=== PATIENT | female | born 1970 | race Caucasian/White ===

== ENCOUNTER 2016-09-06 14:01 | Emergency (ER) | payer OTHER, MEDICARE ==
[~2016-09-06 14:01] MED LIST: ALDACTONE PO; ASAB PO; BACTROCR TOP; BANOPHEN25 MG PO; BUM1 PO; C5 PO; COREG3 PO; COUMADIN4 MG PO; DSS PO; ESTRACE1 MG PO; ESTRATESHS PO; HUMALOG KW200 UNIT/1 SQ; HUMALOGPEN SC; K500 PO; KDUR20 PO; KLOR-CON M1010 MEQ PO; L20 PO; LANTUSCART SC; LIPITOR40 PO; LYRICA150 MG PO; MIRALAX POWDER1 PKT PO; MIRALAXPKT PO; MOMUD PO; MSCONT15 PO; MSCONTIN PO; NORFLEX PO; OXYCOD PO; OXYIR5 MG PO; PR25 PO; PRIN2.5 PO; PROAIR HFA INH; PROZAC40 MG PO; SPIRO25 PO; V5 PO; ZANAFLEX 4 MG TA4 MG PO
[2016-09-06 14:48] LABS: BASOPHILS 0.2 %; BASOPHILS ABSOLUTE 0.03 10/3/uL (0.0-0.16); EOSINOPHILS 1.5 %; EOSINOPHILS ABSOLUTE 0.18 10/3/uL (0.0-0.53); ER CBC TAT 0 Hrs 11 Mins; HEMATOCRIT 40.2 % (36.0-48.0); HEMOGLOBIN 13.5 g/dL (12.0-16.0); IMMATURE GRANULOCYTES 0.3 %; IMMATURE GRANULOCYTES ABSOLUTE 0.04 10/3/uL (0.0-0.11); LYMPHOCYTES 36.3 %; LYMPHOCYTES ABSOLUTE 4.47 10/3/uL (0.67-4.30); MEAN CORPUS HGB CONC 33.6 g/dL (32.0-36.0); MEAN CORPUSCULAR HEMOGLOB 27.3 pg (26.0-34.0); MEAN PLATELET VOLUME 9.5 fL (9.2-13.0); MONOCYTES 9.5 %; MONOCYTES ABSOLUTE 1.17 10/3/uL (0.21-1.20); NEUTROPHILS 52.2 %; NEUTROPHILS ABSOLUTE 6.42 10/3/uL (2.02-8.40); PLATELET COUNT 291 10/3/uL (150-400); RBC DISTRIBUTION WIDTH 15.1 % (12.0-16.0); RED CELL COUNT 4.94 10/6/uL (4.0-5.6); WHITE BLOOD CELLS 12.3 10/3/uL (4.5-10.5)
[2016-09-06 14:56] LABS: MANUAL DIFF NO %; MEAN CORPUSCULAR VOLUME 81.4 fL (80-100)
[2016-09-06 15:02] LABS: A/G RATIO 0.8 (0.7-1.9); ALBUMIN 3.2 G/DL (3.5-5.0); ALKALINE PHOSPHATASE 98 U/L (45-117); BUN (BLOOD UREA NITROGEN) 18 MG/DL (6-23); CALCIUM, SERUM 9.2 MG/DL (8.5-10.4); CHLORIDE, SERUM 95 MMOL/L (96-112); CO2 (CARBON DIOXIDE) 30 MMOL/L (24-34); CREATININE 1.11 MG/DL (0.55-1.02); GFR AFRICAN AMERICAN 68 ML/MIN (>=60); GFR NON AFRICAN AMERICAN 59 ML/MIN (>=60); GLOBULIN 4.2 G/DL (2.5-4.1); GLUCOSE, SERUM 113 MG/DL (60-99); POTASSIUM, SERUM 3.9 MMOL/L (3.5-5.3); SGOT(AST) 17 U/L (5-40); SGPT(ALT) 16 U/L (5-65); SODIUM, SERUM 131 MMOL/L (135-148); TOTAL BILIRUBIN 1.2 MG/DL (0-1.2); TOTAL PROTEIN 7.4 G/DL (6.0-8.5)
[2016-09-06 16:25] LABS: TROPONIN I <0.02 NG/ML (<0.05)
[2016-09-06 16:45] LABS: ASCORBIC ACID (UR NOT ORDER) NEG (NEG); BILIRUBIN, URINE NEGATIVE (NEG); KETONE, URINE NEGATIVE (NEG); LEUKOCYTE ESTERASE(NOT OR NEG (NEG); NITRITE (URINE) NEG (NEG); WBC (NOT ORDERED) (RFLEX) < 1 (0-5)
[2016-09-06 18:38] LABS: BE (BASE EXCESS) 5.1 MEQ/L (0 +/- 2.5); CARBOXYHEMOGLOBIN 7.8 % (0-3); HCO3 (ACTUAL BICARBONATE) 29.7 MEQ/L (23-27); HEMOBLOGIN CONTENT 13.9 G/DL (12-16); INSTRUMENT SERIAL # 8087; METHEMOGLOBIN 0.2 % (0-3); O2 CONTENT 14.4 VOL% (18-24); OPERATOR ID 14335; PCO2 (CO2 TENSION) 43 MMHG (35-45); PO2 (O2 TENSION) 42 MMHG (79-93); SAMPLE Arterial; pH 7.45 (7.37-7.43)
[2016-10-16] MEDS ORDERED: PRIN2.5 PO (13:20)
[2016-10-17] MEDS ORDERED: TOPXL25 PO (16:58)
[2016-11-27] MEDS ORDERED: PRIN2.5 PO (17:36)
[2016-11-27] MEDS ORDERED: LYRICA100 MG PO (17:37)
[2016-11-27] MEDS ORDERED: LIPITOR40 PO (17:37)
[2016-11-27] MEDS ORDERED: ROXICODONE15 MG PO (17:38)
[2016-11-27] MEDS ORDERED: SPIRO25 PO (17:38)
[2016-11-27] MEDS ORDERED: DSS PO (17:39)
[2016-11-27] MEDS ORDERED: MSCONT15 PO (17:39)
[2016-11-27] MEDS ORDERED: DANTRIUM25 MG PO (17:39)
[2016-11-27] MEDS ORDERED: BUM1 PO (17:39)
[2016-11-27] MEDS ORDERED: KLOR-CON M2020 MEQ PO (17:40)
[2016-11-27] MEDS ORDERED: COREG3 PO (17:40)
[2016-11-27] MEDS ORDERED: HALF81 PO (17:41)
[2016-11-27] MEDS ORDERED: PR25 PO (17:41)
[2016-11-27] MEDS ORDERED: ESTRACE1 MG PO (17:41)
[2016-11-27] MEDS ORDERED: TOPXL25 PO (17:41)
[2016-11-27] MEDS ORDERED: LANTUS SC (17:42)
[2016-11-27] MEDS ORDERED: HUMALOG SC (17:42)
[2016-11-27] MEDS ORDERED: PROAIR HFA INH (17:43)
[2016-12-02] MEDS ORDERED: ZYVOXPO PO (18:42)
== END 2016-09-06 20:50 | disposition home or self-care (01) ==
LOC: ER 14:01
PROVIDERS: Emergency Medicine
DX: J43.9 Emphysema, unspecified (principal); E11.9 Type 2 diabetes mellitus without complications; I10 Essential (primary) hypertension; I25.2 Old myocardial infarction; Z95.1 Presence of aortocoronary bypass graft; F17.200 Nicotine dependence, unspecified, uncomplicated; Z79.82 Long term (current) use of aspirin; Z79.4 Long term (current) use of insulin; Z79.899 Other long term (current) drug therapy
CPT/HCPCS: 36600; 71020; 71275; 80053; 81001; 82805; 83880; 84484; 85025; 87040; 93005; 99285; Q9967